=== PATIENT | female | born 1955 | race African-American/Black ===

== ENCOUNTER → 2016-06-05 | Outpatient (CLI) | payer OTHER ==
[~2016-06-05] MED LIST: DEXAMETHASONE 44 M1 PO; ENOXAPARIN60 MG/0.1 SUBQ; FENTANYL PA25 MCG/HR TRANSDERM; HYDROCODON-ACE1 EAC7 PO; KEFLEX500 MG PO; KLOR-CON 1010 MEQ PO; LASIX 40 MG TAB40 M2 PO; LIDODERM 5%1 PATC1 TRANSDERM; LORAZEPAM 0.50.5 M1 PO; PERCOCET 7.5-31 EACH PO; PHENERGAN 25 MG25 M1 PO; VENTOLIN HFA 1818 GM INH; ZOFRAN ODT4 MG PO
--- NOTE | ~2016-06-05 | CNG ---
[facility] [place] [address] CYTO-NONGYN REPORT PROCEDURE Name: ANTON BAE Room #: [facility].Jonn.#: [id number] Admission: 06/05/16 Date of : 57 Discharge: Report #: [id number] Path Case #: [id number] CYTOPATHOLOGY REPORT COLLECTION DATE: 06/05/2016 RECEIVED DATE: 06/05/2016 SUBMITTING PHYS: Dr. Amadou Chin OTHER PHYS: CLINICAL HISTORY: Paracentesis/fallopian tube carcinoma, malig ascites SPECIMEN(S) RECEIVED: A.Abdominal fluid * * * * * * * * * * * * FINAL DIAGNOSIS: Abdominal fluid: - POSITIVE FOR MALIGNANCY; MALIGNANT CELLS IDENTIFIED WITH FEATURES OF ADENOCARCINOMA (PLEASE SEE COMMENT). COMMENT: Immunohistochemical stains are performed on the cell block. Calretinin: Non-reactive within the cells of interest Gilberto-EP4: Strong membranous reactivity present P53: Nuclear reactivity present WT1: Membranous reactivity present without any nuclear reactivity (non-specific staining) D2-40: Non-reactive Desmin: Non-reactive within the cells of interest The morphologic features support the involvement of abdominal fluid by a moderately differentiated adenocarcinoma. History of prior liver biopsy ([id number]) with a diagnosis of metastatic adenocarcinoma of Mullerian origin is noted. Findings in the current case are supportive of the same. Please note that a papillary serous carcinoma of endometrial or ovarian origin, as well as primary peritoneal serous carcinoma will show a similar immunohistochemical profile. Please correlate clinically. Co-review: Dr. Michelle Pugh (IUV:mgr; d/t: 06/08/16) PATHOLOGIST: Maddi Ashley M.D. REPORT ELECTRONICALLY SIGNED BY: Maddi Ashley M.D. DATE/TIME: 06/09/2016 13:13 * * * * * * * * * * * * GROSS PATHOLOGY: A. Abdominal fluid: The specimen is submitted unfixed, labeled "Anton Bae". Received by the Cytology Department is 20 mL of [address] [address] CYTO-NONGYN REPORT PROCEDURE Name: ANTON BAE Yan Room #: [facility]#: [id number] Admission: 06/05/16 Date of : 57 Discharge: Report #: [id number] Path Case #: [id number] yellow fluid. One ThinPrep slide and a cell block were prepared. (kg 06/05/16) BOTTOM HOOP DRIVER(S): RED Ybarra(ASCP) INITIAL CPT CODE(S): A; 04786, 31577, 11223, 31210, 10037, 47898, 78692, 73911 Professional services performed by [facility] at [address] , [place] [address] [facility] performed by [facility] at [address] [place] [address]., [address], [place] [address]. [address], [address] [place] [address] PHONE: [phone] DIRECTOR: Feroz Sahni M.D. * * * END OF REPORT * * *
[2016-06-05 15:28] LABS: TOTAL VOLUME 50
[2016-06-07 03:09] LABS: BODY FLUID ALBUMIN 2.5 g/dL (()); BODY FLUID GLUCOSE 89 mg/dL (())
[2016-06-07 05:35] LABS: BODY FLUID LDH 1836 IU/L (())
[2016-06-07 23:05] LABS: BF MACROPHAGE 22 % (Not Estab.); BF NEUTROPHILS 70 % (0-24); BF NUCLEATED CELLS 646 /mm3 (0-499); BF RBC 2000 /uL (Not Estab.); CLARITY CLEAR (Clear); COLOR YELLOW (())
[2016-06-08 14:13] LABS: BF LINING CELLS 0 % (Not Estab.); BODY FLUID AMYLASE 45 U/L (())
== END ==
LOC: ULTRA 13:57
PROVIDERS: Internal Medicine Hematology & Oncology
DX: C57.00 Malignant neoplasm of unspecified fallopian tube (principal); R18.0 Malignant ascites

== ENCOUNTER 2016-06-12 12:14 | Inpatient (IN) | payer OTHER ==
[~2016-06-12] VITALS: Ht 167.6 cm; Wt 63.5 kg
[2016-06-12] VITALS (22 sets, daily range): BP systolic 79–108; BP diastolic 53–78
--- NOTE | ~2016-06-12 | H ---
[facility] [place] [address] HISTORY AND PHYSICAL Name: ANTON BAE Room #: 241-P ADM IN M.R.#: [id number] Admission: 06/12/16 Attend Phys: Kristen Solis MD Discharge: Date of : 57 Report #: [id number] THIS REPORT FOR: //name// CC: [facility] physician/PCP Kristen Solis DATE OF SERVICE: 06/12/2016 TYPE OF DICTATION: Admission H and P after [id number] encounter. CHIEF COMPLAINT: Fever and weakness, status post chemotherapy. HISTORY OF PRESENT ILLNESS: A 60 years old female with a diagnosis of fallopian tube cancer metastasized and ascites with extensive diffuse metastasis including brain, multiple pulmonary nodules in liver, peritoneal metastasis with significant ascites, and she had recently undergone paracentesis. Her course of malignancy was complicated by pulmonary embolism and DVT 1 month ago and inferior vena cava filter was placed at that time and she has been on enoxaparin injection. The patient received second cycle of chemotherapy for her cancer on , but today she felt very weak, feverish, and she was brought to Emergency Room and she was hypotensive. In the Emergency Room, they gave her some IV fluids, which made her blood pressure in a reasonable level. The patient is complaining currently of some cough, but clear sputum and denies any other symptoms. She has generalized fatigue. She is alert, oriented. The patient is without any short of breath or chest pain. She denies any abdominal pain, dysuria, hematuria, nausea, vomiting, or change in her bowel habit. REVIEW OF SYSTEMS: Except that mentioned in the HPI, all other systems are negative. PAST MEDICAL HISTORY: Include: 1. Metastatic fallopian tube cancer. 2. History of para 3, 3. MEDICATIONS: See admission reconciliation sheet. ALLERGIES: No known drug allergies. SOCIAL HISTORY: The patient is living with her son. No alcohol or tobacco. She is not employed. No illicit drugs. FAMILY HISTORY: Noncontributory. PHYSICAL EXAMINATION: GENERAL: She is alert, oriented. VITAL SIGNS: Temperature is 99.1, pulse 130, blood pressure 96/57, respirations [facility] [address] [place] [address] HISTORY AND PHYSICAL Name: ANTON BAE Room #: 241-P [facility] IN [facility]#: [id number] Admission: 06/12/16 Attend Phys: Kristen Solis MD Discharge: Date of : 57 Report #: [id number] 18. HEENT: PERRLA. Intact extraocular muscles. No icterus. NECK: Supple. No JVD. No bruit. No thyroid. CHEST: Good air entry, but diminished on the bases. CARDIOVASCULAR: Regular rate and rhythm. No murmur, rub or gallop. Tachycardic. ABDOMEN: Distended, shifting dullness. No organomegaly appreciated. EXTREMITIES: +2 pitting edema. SKIN: Intact. No rash or ulcers. NEUROLOGIC: Cranial nerves 2-12 are intact. No focal neurological signs. PSYCHIATRIC: Normal affect, judgment. DATA: Chest x-ray, multiple pulmonary nodules. White count is 0.4, hemoglobin 9.5, hematocrit 30, platelets 84. Sodium 131, potassium 3.6, chloride 96, bicarb 21, BUN 35, creatinine 0.8, glucose 105, alkaline phosphatase 268. INR 1.1. Total protein 6.2, albumin 2. UA is negative. Amylase 56, lipase 99. Her ABGs did show pH of 7.45, pCO2 30.8, and pO2 74.2, lactate 1.78. ASSESSMENT AND PLAN: 1. Severe sepsis. The patient is going to be admitted to the ICU. The patient is going to be supported by IV fluids. We are going to start her on broad-spectrum antibiotics. The etiology of the infection is not clear yet, but it most probably can be secondary to peritonitis, so the patient will be on IV fluids, broad-spectrum antibiotics and supportive care. Pulmonary and ID are on the case. Her lactate is mildly elevated. 2. Neutropenic fever. This is going to be on precaution and we are going to follow her white count closely. Of note is she has received her first doses of antibiotic in the ER. 3. Metastatic fallopian tube cancer. The patient is status post chemotherapy. She is going to be followed by the hematology/oncology service. 4. for now, maybe we are going to consult GI if she needs more paracentesis or it can be managed by her heme/onc doctor. 5. Anemia and thrombocytopenia secondary to the cancer situation. Cultures were obtained for the patient. The patient on sepsis protocol and we are going to follow her very closely. <ELECTRONICALLY SIGNED> By: Kristen Solis MD 06/13/16 0929 0534 0645 Kristen Solis MD /nt
--- NOTE | ~2016-06-12 | HC ---
[facility] [place] [address] CONSULTATION Name: ANTON BAE Room #: 241-P [facility] IN ..#: [id number] Admission: 06/12/16 Attend Phys: Kristen Solis MD Discharge: Date of : 57 Report #: [id number] THIS REPORT FOR: //name// CC: [facility] physician/PCP Kristen Solis HISTORY OF PRESENT ILLNESS: The patient is an unfortunate 60-year-old -[place] female who I have been asked to see for further evaluation of her tense malignant ascites. She was recently diagnosed approximately a month or so ago with metastatic adenocarcinoma most consistent with a fallopian tube. Unfortunately, there is evidence of metastasis to her lung, liver and brain. She has also had recent pulmonary emboli. I was asked to evaluate her for considerations regarding paracentesis. Her medical history is otherwise notable for that mentioned above. She has had an IVC filter placed and has been on chemotherapy for her metastatic fallopian ovarian type cancer, metastatic as above. MEDICATIONS: Include fluconazole, vancomycin and piperacillin. SOCIAL HISTORY: She denies alcohol or tobacco consumption. FAMILY HISTORY: Negative for inflammatory bowel disease or colon cancer. REVIEW OF SYSTEMS: Besides that mentioned above, positive for weight loss, weakness and fatigue. She denies head, eyes, ears, nose or throat complaints. Denies chest pain, chest palpitation, chest pressure, cough, shortness of breath, wheezing, genitourinary, musculoskeletal or neuropsychiatric complaints otherwise. PHYSICAL EXAMINATION: VITAL SIGNS: Afebrile. Vital signs stable. HEENT: Nonicteric. NECK: No JVD, thyromegaly or bruits. CARDIOVASCULAR: Not performed. PULMONARY: Not performed. ABDOMEN: Reveals a tensely distended abdomen without peritoneal signs. EXTREMITIES: Deferred. NEUROLOGIC: Deferred. RECTAL: Deferred. LABORATORY DATA: Pertinent labs include recent ascites with evidence of malignant cells. Serum chemistry notable for venous bicarbonate 19, BUN 15 and creatinine 0.5. Liver tests normal. Lipase normal. Albumin 1.7, total protein 5.6, alkaline phosphatase 169. Lactate 2.2%. Percent transferrin saturation 5. INR 1.2, hemoglobin 10.7, platelet count 62 and her white count is 0.7. [place] [address]. Most recent x-ray reveals ____ in the hospital last admission, although an acute abdominal series reveals innumerable pulmonary [address] [address] CONSULTATION Name: ANTON BAE Room #: 241-P [facility] IN [facility]#: [id number] Admission: 06/12/16 Attend Phys: Kristen Solis MD Discharge: Date of : 57 Report #: [id number] metastasis and no evidence of acute pneumonia or pneumothorax. ASSESSMENT AND PLAN: In summary, the patient has malignant ascites for which a palliative more scheduled approach should be entertained. When she is hospitalized as she was recently, the number of intravenous fluids required for her dehydration have translocated fluid into her abdomen increasing her ascites and decreasing her interval. A more extended approach to scheduled paracentesis would be reasonable once she is more on an outpatient regimen. It has been approximately a little shy of 2 weeks since her last paracentesis. I would schedule her for a large volume paracentesis tomorrow. Thanks for allowing me to participate in the care of this nice woman. <ELECTRONICALLY SIGNED> By: Edil Wood MD 06/15/16 1539 1318 1614 Santos Blunt MD /nt
--- NOTE | ~2016-06-12 | 2DMMODE ---
[facility] [place] [employer] [place] [address] 2 D/M-MODE ECHOCARDIOGRAM Name: KATHIAANTON E Room #: 241-P [facility]#: [id number] Admission: 06/12/16 Attend Phys: Kristen Solis, Discharge: Date of : 57 Date of Service: 06/15/16 0849 Report #: [id number] THIS REPORT FOR: //name// Transthoracic Echocardiography Ordering physician: Yuriy Escamilla Referring physician: Yuriy Escamilla Geoscience Specialist: MIRLANDE Pyle Indications/History: Bacteremia, Sepsis. BP: 108 / HR: 110bpm Height: 65in Weight: 139.7lb 79 Study data: M-mode, complete 2D, complete spectral Doppler, and color Doppler. Location: Bedside. Routine. Image quality was good. 2D measurements Normal Normal LVID ED 33mm 36-57 IVS ED 9.6mm 6-11 LVID ES 24.3mm 23-40 LVPW ED 8.3mm 6-11 LA volume index 20ml/m2 16-28 AoRoot diam ED 32mm 21-37 LVOT diameter 19mm 18-23 Findings: Left ventricle: The cavity size was normal. Wall thickness was normal. Systolic function was normal. The estimated ejection fraction was in the range of 55% to 60%. Wall motion was normal. Right ventricle: The cavity size was normal. Systolic function was normal. Right atrium: The atrium was normal in size. Left atrium: The atrium was normal in size. Volume index: 20ml/m2 (S). Aortic valve: Trileaflet; mildly calcified leaflets. Doppler: There was no stenosis. No regurgitation. Peak velocity: 152.5cm/s (S). Mitral valve: Mildly calcified annulus. Doppler: There was no evidence for stenosis. Trivial regurgitation. [facility] [address] [place] [address] 2 D/M-MODE ECHOCARDIOGRAM Name: ANTON BAE #: 241-P [facility] IN M.R.#: [id number] Admission: 06/12/16 Attend Phys: Kristen Solis, Discharge: Date of : 57 Date of Service: 06/15/16 0849 Report #: [id number] Peak E-wave velocity: 48.6cm/s. Peak A-wave velocity: 88cm/s. Tricuspid valve: Structurally normal valve. Doppler: There was no evidence for stenosis. Mild regurgitation. Regurgitant peak velocity: 282.9cm/s. Peak RV-RA gradient: 32mm Hg (S). Pulmonic valve: Structurally normal valve. Doppler: There was no evidence for stenosis. No regurgitation. Pericardium: There was no pericardial effusion. Aorta: Aortic root: The aortic root was normal in size. Pulmonary artery: Systolic pressure was estimated to be 35mm Hg. Diastolic function: Doppler parameters are consistent with abnormal left ventricular relaxation (grade 1 diastolic dysfunction). Systemic veins: Inferior vena cava: The vessel was normal in size; the respirophasic diameter changes were in the normal range (= 50%). Conclusions 1. Left ventricle: Systolic function was normal. The estimated ejection fraction was in the range of 55% to 60%. Wall motion was normal. Doppler parameters are consistent with abnormal left ventricular relaxation (grade 1 diastolic dysfunction). 2. Aortic valve: Trileaflet; mildly calcified leaflets. There was no stenosis. No regurgitation. 3. Mitral valve: Mildly calcified annulus. Trivial regurgitation. 4. Pericardium, extracardiac: There was no pericardial effusion. 5. Pulmonary arteries: Systolic pressure was estimated to be 35mm Hg. <ELECTRONICALLY SIGNED> By: Cas Patterson MD, [facility] 06/15/1646 0849 5 Cas Patterson MD, [facility] /richard
--- NOTE | ~2016-06-12 | HC ---
[facility] [place] [address] CONSULTATION Name: ANTON BAE Room #: 241-P [facility] IN M.R.#: [id number] Admission: 06/12/16 Attend Phys: Kristen Solis MD Discharge: Date of : 57 Report #: [id number] THIS REPORT FOR: //name// CC: [facility] physician/PCP Kristen Chin MD DATE OF SERVICE: 06/12/2016 REFERRING PROVIDER: Viktoriya. REASON FOR CONSULTATION: Sepsis. CHIEF COMPLAINT: Weakness and fever. HISTORY OF PRESENT ILLNESS: Our group was asked to see the patient in consultation while hospitalized at [facility], seen in the emergency room 12 at the request of Dr. Sadler and Dr. Sai Phelps. A pleasant 60-year-old woman who unfortunately had history of recently diagnosed mullerian cancer with extensive diffuse metastasis including brain, multiple pulmonary nodules, liver and peritoneal metastasis with difficulty with significant ascites had recently undergone a paracentesis. Her recent course is complicated by 1 month ago diagnosis of significant pulmonary embolism and DVT, has an IVC filter, has been on enoxaparin injections for therapy. Has had some persistent lower extremity edema as a consequence. She has received a second cycle of treatment for her cancer yesterday, however, today felt extremely weak. Family noted a temperature of 102, was brought to the emergency department, was hypotensive, received some IV fluids. A right IJ central line has been placed for management assistance. Currently has had some cough with clear sputum. Denies any other symptoms. Has some general malaise. She is alert and oriented, but seem somewhat delayed in mentation. Denies any chest pain, significant abdominal pain, dysuria or hematuria. No nausea, vomiting, or change in bowel habits. States that she is otherwise without any other complaints other than the generalized weakness. ALLERGIES: None known. PAST MEDICAL HISTORY: 1. History of metastatic mullerian cancer as described in HPI. 2. History of prior times 3. OUTPATIENT MEDICATIONS: 1. Enoxaparin 60 mg subcutaneous twice daily. 2. Dexamethasone 4 mg twice daily. 3. Albuterol p.r.n. [facility] [address] [place] [address] CONSULTATION Name: ANTON BAE Room #: 241-P [facility].#: [id number] Admission: 06/12/16 Attend Phys: Kristen Solis MD Discharge: Date of : 57 Report #: [id number] 4. Hydrocodone p.r.n. 5. Lidocaine patches. 6. Lorazepam p.r.n. 7. Ondansetron p.r.n. 8. Promethazine p.r.n. 9. Outpatient cancer treatment of unclear agents. SOCIAL HISTORY: The patient is currently , lives with son Shawn. No alcohol or tobacco use. Has been a homemaker. No outside employment. No animals in her home. FAMILY HISTORY: Negative for any significant pulmonary disease. REVIEW OF SYSTEMS: As described in HPI. Also had a fever, generalized weakness and cancer related symptoms. Has been asymptomatic. PHYSICAL EXAMINATION: VITAL SIGNS: Temperature 99.1, pulse 130s and regular, respiratory rate 20s, blood pressure 96/57, oxygen saturation 97% on room air. GENERAL: This is a thin, middle-aged woman in moderate respiratory distress. ENT: Clear oropharynx. No thrush. No erythema. NECK: Supple, no lymphadenopathy. LUNGS: Diminished, no wheezes or crackles. CARDIOVASCULAR: Heart was tachycardic, but regular. No murmurs noted. ABDOMEN: Extensively distended with fluid wave noted. Hepatomegaly appreciated with nodular appearing liver. EXTREMITIES: Revealed 2+ pitting edema with a rapid recovery time. INTEGUMENT: I did not identify any rash. LABORATORY DATA: Chest x-ray reveals central line in right atrium, multiple pulmonary nodules are noted, no acute change when compared to previous films. White blood cell count 0.4, hemoglobin 9.5, hematocrit 30, platelet count 84. Sodium 131, potassium 3.6, chloride 96, bicarbonate 21, BUN 35, creatinine 0.8, glucose 105, alkaline phosphatase 268. INR 1.1. There is no arterial blood gas. No lactate noted. IMPRESSION: 1. Neutropenic fever with findings suggestive of severe sepsis as evidenced by hypotension and likely infectious cause. Lactate mildly elevated. 2. Neutropenia. 3. Metastatic mullerian cancer. 4. Ascites. 5. Anemia and thrombocytopenia. SUGGESTIONS: Source of infection is not clear. 1. Infectious disease consultation. [address] [address] CONSULTATION Name: BAEANTON E Room #: 241-P [facility] IN ..#: [id number] Admission: 06/12/16 Attend Phys: Kristen Solis MD Discharge: Date of : 57 Report #: [id number] 2. Broad-spectrum antimicrobials. 3. Nasal swab for influenza screen. 4. Blood, urine, sputum cultures. 5. Follow up chest radiograph. 6. ICU care. 7. Initiate sepsis protocol, but meets early goal directed therapy. We will discontinue therapy early. 8. Additional recommendations to follow. Discussed with son and nursing as well as Dr. Solis at bedside. Total critical care time 40 minutes, not including any procedures to this point. <ELECTRONICALLY SIGNED> By: Yuriy Escamilla MD 06/15/16 0904 1525 2154 Yuriy Escamilla MD /nt
--- NOTE | ~2016-06-12 | HC ---
[facility] [place] [address] CONSULTATION Name: ANTON BAE Room #: 241-P [facility] IN M.R.#: [id number] Admission: 06/12/16 Attend Phys: Kristen Solis MD Discharge: Date of : 57 Report #: [id number] THIS REPORT FOR: //name// CC: [facility] physician/PCP Kristen Solis REASON FOR CONSULTATION: I was asked to evaluate concerning severe sepsis. HISTORY OF PRESENT ILLNESS: The patient was a 60-year-old recently diagnosed with metastatic fallopian tube cancer with disease throughout the abdomen and pelvis including liver, lung and brain, presented on 05/11/2016 where the initial diagnosis was made. She has not been doing well for at least the last 4-5 months, with progressive weight loss, abdominal distention. She was found to also have bilateral PEs. IVC filter was placed and she was started on her first round of chemotherapy, which included Taxol and carboplatin. Her CA-125 was greater than 14,000. She tolerated her first treatment course and had a repeat dose this week. This morning she developed fever, chills and generalized weakness. Temperature was up to 103 degrees. She presented to the Emergency Room, hypotensive and tachycardic. It is noted that she had had a paracentesis done on the which showed adenocarcinoma on cytology. Cultures were negative. They took about 4 liters off. She has reaccumulated. She reports no headache. She has had a mild sore throat, no cough or sputum production. No pleuritic chest pain. No nausea, vomiting. She has had loose stools. No dysuria or frequency. ALLERGIES: None. MEDICATIONS: As noted on her MAR, which were reviewed. She was given a dose of vancomycin and Zosyn in the Emergency Room. PAST MEDICAL HISTORY: , IVC filter and the above noted points. FAMILY HISTORY: Noncontributory. SOCIAL HISTORY: She is a nonsmoker, no significant alcohol intake. PHYSICAL EXAMINATION: VITAL SIGNS: Temperature was 99 degrees, heart rate 130, blood pressure 86/56, respiratory rate 22. GENERAL: She was alert and conversant. Cachectic. Had abdominal distention and lower extremity edema. No rashes or decubiti. HEENT: No thrush. She has a right IJ catheter in place. LUNGS: Clear. HEART: Tachycardic and regular. ABDOMEN: Had ascites, was mildly tender, but did not have any guarding or rebound. NEUROLOGIC: Unremarkable. [facility] [address] [place] [address] CONSULTATION Name: ANTON BAE Room #: 241-P [facility] IN [facility]#: [id number] Admission: 06/12/16 Attend Phys: Kristen Solis MD Discharge: Date of : 57 Report #: [id number] LABORATORY STUDIES: Chest x-ray shows bilateral pulmonary nodule, hemoglobin 9.5, white count 0.4 with 43% neutrophils, platelet count 84,000. Urinalysis unremarkable. Lactate was 2.7. Blood and urine cultures are pending. Sodium 131, potassium 3.6, bicarbonate 21, creatinine 0.8, alkaline phosphatase 268. Liver function tests otherwise normal. IMPRESSION: A 60-year-old with widely metastatic adenocarcinoma, fallopian tube origin, now with neutropenic fever and sepsis. Etiology at this point has not been determined. With her onset of diarrhea, suspect she may mucositis, enteritis and translocation of bacteria. We will recommend broad antibiotic coverage. Add antifungal for her thrush. She has been given Neulasta wither last chemotherapy per their report. <ELECTRONICALLY SIGNED> By: Sai Phelps MD 06/15/16 1010 1612 2238 Sai Phelps MD /nt
--- NOTE | ~2016-06-12 | CNG ---
[facility] [place] [address] CYTO-NONGYN REPORT PROCEDURE Name: KATHIAANTON E Room #: 241-P ADM IN M.R.#: [id number] Admission: 06/12/16 Date of : 57 Discharge: Report #: [id number] Path Case #: [id number] CYTOPATHOLOGY REPORT COLLECTION DATE: 06/15/2016 RECEIVED DATE: 06/15/2016 SUBMITTING PHYS: Dr. Santos Blunt OTHER PHYS: Dr. Kristen Solis CLINICAL HISTORY: Ovarian cx, Mets liver, Lung, Brain. SPECIMEN(S) RECEIVED: A.Abdominal fluid * * * * * * * * * * * * FINAL DIAGNOSIS: A. Abdominal fluid: - MALIGNANT CELLS IDENTIFIED WITH CELLULAR FEATURES OF ADENOCARCINOMA. Dr. Ashley has also reviewed this case and she agrees with the diagnosis. Patient's history of a metastatic adenocarcinoma likely of Mullerian origin is noted. PATHOLOGIST: Lucius Ram M.D. REPORT ELECTRONICALLY SIGNED BY: Lucius Ram M.D. DATE/TIME: 06/16/2016 13:50 * * * * * * * * * * * * GROSS PATHOLOGY: A. Abdominal fluid: The specimen is submitted unfixed, labeled "Anton Bae". Received by the Cytology Department is 15 mL of yellow fluid. One ThinPrep slide and a cell block were prepared. (clt 06.15.2016) COMPETENCY EVALUATED NURSE AIDE(S): Chandni G. Villatoro, CT(ASCP) INITIAL CPT CODE(S): A; 46889, 71129 Professional services performed by [facility] at [facility] [address], [place] [address] Technical services performed by [facility] at [address] [place] [address], [address], [place] [address]. [facility] [address] [place] [address] CYTO-NONGYN REPORT PROCEDURE Name: ANTON BAE Room #: 241-P ADM IN M.R.#: [id number] Admission: 06/12/16 Date of : 57 Discharge: Report #: [id number] Path Case #: [id number], [address] [place] [address] PHONE: [phone] DIRECTOR: Feroz Sahni M.D. * * * END OF REPORT * * *
--- NOTE | ~2016-06-12 | HC ---
[facility] [place] [address] CONSULTATION Name: ANTON BAE Room #: 241-P [facility] IN M.R.#: [id number] Admission: 06/12/16 Attend Phys: Kristen Solis MD Discharge: Date of : 57 Report #: [id number] THIS REPORT FOR: //name// CC: SAL ALAS physician/PCP Kristen Escamilla MD REASON FOR CONSULTATION: Metastatic fallopian/ovarian type cancer. 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 Unfortunately, cancer was metastatic to lung, liver and cerebellum at that time. She was also found to have pulmonary emboli without DVT and had an IVC filter placed. The patient began a carboplatin and Taxol chemotherapy approximately 3 weeks and 2 days ago, received her second cycle yesterday. Her blood counts yesterday were a white count I believe in the 8 range. Her hemoglobin was 9.6 range and her platelets were over 100,000. The patient would have come to the office today for her Neulasta growth factor shot. The patient's son called the office today, said the patient was running a fever and felt ill, ____ come to the emergency room. Here, her white count was found to be 0.4 and her blood pressure was a little bit lower, her lactic acid was elevated. We are concerned that she was developing sepsis since she was admitted. At this time, the patient is in ICU; I had a chance to talk with both her son, Shawn, as well as the patient. At the time of visiting the patient in the ICU, she denies any really pain. She feels cold and chilled at this time. She does not feel like she has a headache. She does feel like she has a bit of a sore throat, sore mouth. She was noted to have thrush. She also felt like she is moving air okay. She has some abdominal pressure, but not really any pain. Did have a little bit nausea earlier, but not now. She has not had any new diarrhea or constipation or dysesthesias. She did talk "I had a little bit loose stool one time early today, no bleeding difficulties." Does have some ankle swelling the same that she has had about mid leung. PAST MEDICAL HISTORY: Notable for the recent finding of the metastatic fallopian/ovarian type cancer with multiple mets. Note that the brain has not been radiated as we thought that she was asymptomatic and that her systemic therapy needed to be initiated sooner. On exam recently, we thought her abdomen was slightly smaller. She also has the PE on Lovenox. No bleeding. Could consider lovenox if clinically she is improving and the risk of clotting is higher than that of bleeding ; note that she does have an IVC filter in place. Note that she also was found to be iron deficient last time and received iron sucrose with an improvement in her hemoglobin up to over 9.5. Had not had a GI evaluation yet. [address] [address] CONSULTATION Name: ANTON BAE Room #: 241-P ADM IN M.R.#: [id number] Admission: 06/12/16 Attend Phys: Kristen Solis MD Discharge: Date of : 57 Report #: [id number] MEDICATIONS: At this time, in the hospital, currently include the filgrastim which I just ordered, fluconazole daily, vancomycin q. 12 hours, piperacillin q. 6 hours, insulin on a sliding scale, pressors if needed, Tylenol as needed. SOCIAL HISTORY: Nonsmoker. No alcohol. No street drugs. I do not think she has worked outside the home. She ____ children. FAMILY HISTORY: Does not know much about her father, mother at childbirth, had 3 brothers. She has 3 children. No one else with cancer that she is aware of. Note that she has not had genetic testing yet. PHYSICAL EXAMINATION: VITAL SIGNS: Height today is 5 feet 6 inches, 167.6 cm, 140 pounds or 63.5 kg, blood pressure is currently 102/64, O2 sat 95%, respirations 24, pulse 141, temperature was 99.1 earlier. HEENT: Oropharynx has thrush. LUNGS: Symmetric unlabored air movement. HEART: Tachy. No definite murmur. LYMPHATICS: No enlarged lymph nodes in the supraclavicular, cervical, axillary or inguinal region. ABDOMEN: Protuberant related to ascites ____. The mass of her abdomen seems somewhat smaller, though it is hard to tell with the fluid. EXTREMITIES: Without clubbing or cyanosis. Does have some edema up to about two-thirds up the leung. LABORATORY DATA: Shows a BUN of 32, creatinine of 0.7; note that at last admit, her BUN had been 18. Bilirubin range is normal; alkaline phosphatase 215, down from 648 when she left; ALT 41; total protein 5.2, had been 5.9 when she left; albumin 1.7, had been 2/3 when she left; lactic acid had been 2.7, is down to 2.2. Iron panel last time ____ the patient received iron. Coags showed normal protime and APTT. White count is currently 0.3, hemoglobin 8.1, platelets are 71; note that when she left the hospital last time, they were 396. Differential has an ANC of 0.2. Note that her CA-125 last admission had been 14,037. Note that influenza panel tests are pending. UA did not reveal nitrite or leukocytes. ASSESSMENT AND PLAN: 1. Metastatic fallopian/mullerian/ovarian type cancer status post cycle 2. We will begin patient on filgrastim today. 2. Sepsis. Agree with cultures and broad spectrum antibiotics. 3. Thrush, Diflucan. 4. Central nervous system metastases. I am holding off on radiation therapy at this time as she has been essentially asymptomatic. 5. Malignant ascites. Paracentesis as needed. 6. Pulmonary emboli. Has an IVC filter. Could hold off on Lovenox until we see what direction her sepsis goes. Currently, her platelets are slightly [facility] [address] [place] [address] CONSULTATION Name: ANTON BAE Room #: 241-P [facility] IN ..#: [id number] Admission: 06/12/16 Attend Phys: Kristen Solis MD Discharge: Date of : 57 Report #: [id number] lower. 7. Anemia. Will probably drop with hydration. 8. Protein calorie malnutrition, very concerned and albumin was 2 prior to this recent issue. 9. Code status. I talked to the patient who is deferring to her son, Shawn. I expressed my concern about her ability to tolerate or be able to recover from a systemic illness, especially if she would suffer vascular collapse and need intubation or need chest compressions. I would suggest that they not proceed that way. At this point, he wishes to until we see what direction things proceed. We will defer. <ELECTRONICALLY SIGNED> By: Amadou Chin MD 06/16/16 [id number] Amadou Chin MD /nt
[~2016-06-12 12:14] MED LIST changes: -FENTANYL PA25 MCG/HR TRANSDERM; -KEFLEX500 MG PO; -PERCOCET 7.5-31 EACH PO
[2016-06-12 13:03] LABS: CALCIUM 7.8 mg/dL (8.5-10.1); CREATININE 0.8 mg/dL (0.6-1.3); HEMATOCRIT 29.9 % (37.0-47.0); HEMOGLOBIN 9.5 gm/dL (12.0-15.0); MCH 24.8 pg (26.0-34.0); MCHC 31.8 % (28.0-37.0); PLATELET COUNT 84 thou/uL (150-400); POTASSIUM 3.6 mmol/L (3.5-5.1); RBC 3.83 mil/uL (4.20-5.00); RDW 35.3 % (10.5-14.5)
[2016-06-12 13:07] LABS: MANUAL DIFF YES; WBC 0.4 thou/uL (4.0-11.0)
[2016-06-12 13:09] LABS: DIRECT BILIRUBIN 0.1 mg/dL (<0.1-0.3); TOTAL BILIRUBIN 0.5 mg/dL (<0.1-1.0); TOTAL PROTEIN 6.2 g/dL (6.4-8.2)
[2016-06-12 13:49] LABS: INR 1.1; PROTIME 11.4 Seconds (9.3-11.4)
[2016-06-12 14:21] LABS: URINE BILIRUBIN NEGATIVE (Negative); URINE BLOOD NEGATIVE (Negative); URINE COLOR YELLOW; URINE GLUCOSE-RANDOM* NEGATIVE (Negative); URINE KETONES NEGATIVE (Negative); URINE LEUKOCYTES-REFLEX NEGATIVE (Negative); URINE PROTEIN (DIPSTICK) TRACE (Negative); URINE UROBILINOGEN 0.2 E.U./dl (0.2-1.0)
[2016-06-12 14:32] LABS: ABSOLUTE NEUTROPHILS 0.2 thou/uL (1.4-8.2); ANISOCYTOSIS 2+; ATYPICAL LYMPHS 1 %; TOTAL CELL COUNT 100
[2016-06-12 14:33] LABS: LARGE PLATELETS RARE
[2016-06-12 17:14] LABS: RBC 3.25 mil/uL (4.20-5.00)
[2016-06-12 17:16] LABS: HEMATOCRIT 25.7 % (37.0-47.0); HEMOGLOBIN 8.1 gm/dL (12.0-15.0); MCH 25.1 pg (26.0-34.0); MCHC 31.7 % (28.0-37.0); MCV 79.1 fL (80.0-100.0); PLATELET COUNT 71 thou/uL (150-400); RDW 34.9 % (10.5-14.5)
[2016-06-12 17:20] LABS: MANUAL DIFF YES; WBC 0.3 thou/uL (4.0-11.0)
[2016-06-12 17:36] LABS: CREATININE 0.7 mg/dL (0.6-1.3); POTASSIUM 3.5 mmol/L (3.5-5.1)
[2016-06-12 17:44] LABS: ALBUMIN 1.7 g/dL (3.4-5.0); TOTAL BILIRUBIN 0.5 mg/dL (<0.1-1.0); TOTAL PROTEIN 5.2 g/dL (6.4-8.2)
[2016-06-12 18:43] LABS: ABSOLUTE NEUTROPHILS 0.2 thou/uL (1.4-8.2); NUCLEATED RBCS 1 /100WBC; TOTAL CELL COUNT 100
[2016-06-12 18:44] LABS: ANISOCYTOSIS 3+
[2016-06-12 18:45] LABS: LARGE PLATELETS FEW
[2016-06-12 21:08] LABS: ABG SAMPLE TYPE VENOUS; BE(vivo) -2.4 mmol/L (-2 to +3); HCO3 21.1 mmol/L (22.0-26.0); LACTATE 1.78 mmol/L (0.5-2.0); O2Hb VENOUS 67.4 (65.0-85.0); PCO2 VENOUS 30.8 mmHg (41.0-51.0); PO2 VENOUS 36.9 mmHg (35.0-45.0); sO2 VENOUS 74.2 % (65.0-85.0)
[2016-06-12 21:09] LABS: STICK SITE LINE
[2016-06-12 21:22] LABS: ABG SAMPLE TYPE ARTERIAL; BE(vivo) -2.3 mmol/L (-2 to +3); HCO3 20.5 mmol/L (22.0-26.0); LACTATE 1.92 mmol/L (0.5-2.0); O2(CT) 12.7 mL/dL (15.0-23.0); O2Hb 92.8 % (92.0-98.0); PCO2 28.3 mmHg (35.0-45.0); PO2 69.1 mmHg (80.0-100.0); STICK SITE R.BRACHIAL; pH 7.478 (7.360-7.450); sO2 95.2 % (92.0-98.0); tCO2 21.4 mmol/L (24.0-30.0)
[2016-06-12 21:34] LABS: CALCIUM 6.6 mg/dL (8.5-10.1); CREATININE 0.6 mg/dL (0.6-1.3)
[2016-06-12 21:50] LABS: APTT 37.4 Seconds (24.5-32.8); INR 1.1; PROTIME 11.7 Seconds (9.3-11.4)
[2016-06-13] VITALS (67 sets, daily range): BP systolic 85–112; BP diastolic 58–82
[2016-06-13 04:18] LABS: ABG SAMPLE TYPE VENOUS; BE(vivo) -4.3 mmol/L (-2 to +3); HCO3 20.1 mmol/L (22.0-26.0); O2(CT) 11.5 mL/dL (15.0-23.0); O2Hb VENOUS 76.4 (65.0-85.0); PCO2 VENOUS 34.5 mmHg (41.0-51.0); PO2 VENOUS 43.1 mmHg (35.0-45.0); sO2 VENOUS 78.7 % (65.0-85.0); tCO2 21.1 mmol/L (24.0-30.0)
[2016-06-13 04:19] LABS: STICK SITE LINE
[2016-06-13 04:36] LABS: HEMOGLOBIN 9.7 gm/dL (12.0-15.0); MCV 81.7 fL (80.0-100.0)
[2016-06-13 04:38] LABS: HEMATOCRIT 30.7 % (37.0-47.0); MCH 25.9 pg (26.0-34.0); MCHC 31.7 % (28.0-37.0); PLATELET COUNT 62 thou/uL (150-400); RBC 3.75 mil/uL (4.20-5.00); RDW 29.9 % (10.5-14.5)
[2016-06-13 04:46] LABS: INR 1.2
[2016-06-13 04:51] LABS: FIBRINOGEN 491.7 mg/dL (210-360); MANUAL DIFF YES
[2016-06-13 04:53] LABS: CALCIUM 6.8 mg/dL (8.5-10.1); CREATININE 0.6 mg/dL (0.6-1.3); MAGNESIUM 1.8 mg/dL (1.8-2.4); POTASSIUM 3.3 mmol/L (3.5-5.1); WBC 0.5 thou/uL (4.0-11.0)
[2016-06-13 06:26] LABS: ABSOLUTE NEUTROPHILS 0.3 thou/uL (1.4-8.2); ATYPICAL LYMPHS 1 %; METAMYELOCYTES 1 %; TOTAL CELL COUNT 100
[2016-06-13 06:28] LABS: ANISOCYTOSIS 2+; MACROCYTES 2+; MICROCYTES 1+; OVALOCYTES 1+
[2016-06-13 06:29] LABS: PLATELET ESTIMATE DECREASED; POIKILOCYTOSIS 1+; SCHISTOCYTES 1+
[2016-06-13 07:11] LABS: HIV ANTIBODY Non Reactive (Non Reactive)
[2016-06-13 12:47] LABS: POTASSIUM 4.1 mmol/L (3.5-5.1)
[2016-06-14] VITALS (23 sets, daily range): BP systolic 99–120; BP diastolic 75–97
[2016-06-14 04:39] LABS: HEMOGLOBIN 10.7 gm/dL (12.0-15.0)
[2016-06-14 04:41] LABS: HEMATOCRIT 33.9 % (37.0-47.0); MCHC 31.6 % (28.0-37.0); MCV 82.4 fL (80.0-100.0); RBC 4.12 mil/uL (4.20-5.00)
[2016-06-14 04:50] LABS: WBC 0.7 thou/uL (4.0-11.0)
[2016-06-14 04:51] LABS: MANUAL DIFF YES
[2016-06-14 04:55] LABS: ALBUMIN 1.7 g/dL (3.4-5.0); CALCIUM 7.3 mg/dL (8.5-10.1); CREATININE 0.5 mg/dL (0.6-1.3); MAGNESIUM 1.9 mg/dL (1.8-2.4); POTASSIUM 3.6 mmol/L (3.5-5.1); TOTAL BILIRUBIN 0.4 mg/dL (<0.1-1.0); TOTAL PROTEIN 5.6 g/dL (6.4-8.2)
[2016-06-14 08:54] LABS: ABSOLUTE NEUTROPHILS 0.1 thou/uL (1.4-8.2); PLATELET COUNT 62 thou/uL (150-400)
[2016-06-14 08:55] LABS: ANISOCYTOSIS 2+; MICROCYTES 1+; POIKILOCYTOSIS 1+
[2016-06-15] VITALS (18 sets, daily range): BP systolic 97–125; BP diastolic 67–93
[2016-06-15 09:22] LABS: HEMOGLOBIN 9.9 gm/dL (12.0-15.0)
[2016-06-15 09:24] LABS: HEMATOCRIT 30.8 % (37.0-47.0); MCH 26.1 pg (26.0-34.0); MCV 81.6 fL (80.0-100.0); PLATELET COUNT 53 thou/uL (150-400); RBC 3.77 mil/uL (4.20-5.00); RDW 30.7 % (10.5-14.5)
[2016-06-15 09:39] LABS: MANUAL DIFF YES; PROTIME 10.5 Seconds (9.3-11.4)
[2016-06-15 09:40] LABS: WBC 0.2 thou/uL (4.0-11.0)
[2016-06-15 09:43] LABS: CREATININE 0.5 mg/dL (0.6-1.3); POTASSIUM 3.2 mmol/L (3.5-5.1)
[2016-06-15 10:04] LABS: TOTAL CELL COUNT 50
[2016-06-15 10:05] LABS: ANISOCYTOSIS 3+; MACROCYTES 2+; MICROCYTES 1+
[2016-06-15 14:16] LABS: TOTAL VOLUME 45
[2016-06-16] VITALS (16 sets, daily range): BP systolic 97–127; BP diastolic 67–83
[2016-06-16 04:28] LABS: MCH 26.2 pg (26.0-34.0); MCV 81.7 fL (80.0-100.0); PLATELET COUNT 40 thou/uL (150-400)
[2016-06-16 04:29] LABS: HEMATOCRIT 27.2 % (37.0-47.0); HEMOGLOBIN 8.7 gm/dL (12.0-15.0); MCHC 32.1 % (28.0-37.0); RBC 3.33 mil/uL (4.20-5.00); RDW 30.3 % (10.5-14.5)
[2016-06-16 04:46] LABS: CALCIUM 7.7 mg/dL (8.5-10.1); CREATININE 0.5 mg/dL (0.6-1.3)
[2016-06-16 05:00] LABS: WBC 0.2 thou/uL (4.0-11.0)
[2016-06-16 05:01] LABS: MANUAL DIFF YES
[2016-06-16 06:04] LABS: TOTAL CELL COUNT 50
[2016-06-16 06:05] LABS: LARGE PLATELETS OCCASIONAL; PLATELET ESTIMATE DECREASED
[2016-06-16 06:08] LABS: ANISOCYTOSIS 3+
[2016-06-16 10:10] LABS: BODY FLUID ALBUMIN 1.7 g/dL (()); BODY FLUID AMYLASE 33 U/L (()); BODY FLUID GLUCOSE 93 mg/dL (()); BODY FLUID LDH 2125 IU/L (()); BODY FLUID PROTEIN 3.2 g/dL (())
[2016-06-16 11:12] LABS: BF LINING CELLS 29 % (Not Estab.); BF MACROPHAGE 1 % (Not Estab.); BF NEUTROPHILS 15 % (0-24); BF NUCLEATED CELLS 159 /mm3 (0-499); BF RBC 3000 /uL (Not Estab.); CLARITY CLOUDY (Clear); COLOR YL (())
[2016-06-16 22:09] LABS: INFLUENZA B Negative (Negative); METAPNEUMOVIRUS Negative (Negative)
[2016-06-17] VITALS (23 sets, daily range): BP systolic 88–118; BP diastolic 55–87
[2016-06-17 04:19] LABS: HEMATOCRIT 28.2 % (37.0-47.0); HEMOGLOBIN 9.1 gm/dL (12.0-15.0); MCH 26.2 pg (26.0-34.0); MCHC 32.4 % (28.0-37.0); RBC 3.49 mil/uL (4.20-5.00); RDW 30.2 % (10.5-14.5)
[2016-06-17 04:24] LABS: MANUAL DIFF YES; WBC 0.2 thou/uL (4.0-11.0)
[2016-06-17 04:39] LABS: CALCIUM 7.5 mg/dL (8.5-10.1); CREATININE 0.5 mg/dL (0.6-1.3)
[2016-06-17 04:43] LABS: POTASSIUM 2.7 mmol/L (3.5-5.1)
[2016-06-17 05:05] LABS: TOTAL CELL COUNT 50
[2016-06-17 05:06] LABS: ANISOCYTOSIS 3+; LARGE PLATELETS OCCASIONAL; PLATELET COUNT 33 thou/uL (150-400); PLATELET ESTIMATE DECREASED
[2016-06-17 05:07] LABS: MACROCYTES 1+
[2016-06-17 05:08] LABS: MICROCYTES 2+
[2016-06-17 05:09] LABS: HYPOCHROMASIA SLIGHT; OVALOCYTES 1+; POIKILOCYTOSIS 1+; TARGET CELLS 1+
[2016-06-17 05:10] LABS: SCHISTOCYTES RARE
[2016-06-18] VITALS (16 sets, daily range): BP systolic 100–124; BP diastolic 73–99
[2016-06-18 00:13] LABS: MAGNESIUM 2.3 mg/dL (1.8-2.4); POTASSIUM 3.3 mmol/L (3.5-5.1)
[2016-06-18] MEDS ORDERED: KEFLEX500 MG PO (11:42)
[2016-06-18] MEDS ORDERED: LORAZEPAM 0.50.5 M1 PO (11:45)
[2016-06-18] MEDS ORDERED: PERCOCET 7.5-31 EACH PO (11:46)
[2016-06-18] MEDS ORDERED: FENTANYL PA25 MCG/HR TRANSDERM (11:47)
== END 2016-06-18 16:00 | disposition hospice, inpatient (51) | DRG 871 ==
LOC: ER 12:14 → ICU 14:20 → EROBS 14:20 → ICU 16:21
PROVIDERS: Emergency Medicine; Family Medicine; Hospitalist; Internal Medicine Gastroenterology; Specialist
PROC: 30233N1 Transfusion of Nonautologous Red Blood Cells into Peripheral Vein, Percutaneous Approach (ICD-10-PCS; principal; 2016-06-12)
PROC: 02H633Z Insertion of Infusion Device into Right Atrium, Percutaneous Approach (ICD-10-PCS; principal; 2016-06-12)
PROC: B244YZZ Ultrasonography of Right Heart using Other Contrast (ICD-10-PCS; principal; 2016-06-12)
PROC: 0W9G30Z Drainage of Peritoneal Cavity with Drainage Device, Percutaneous Approach (ICD-10-PCS; 2016-06-15)
DX: A41.01 Sepsis due to Methicillin susceptible Staphylococcus aureus (principal); R65.21 Severe sepsis with septic shock; I26.99 Other pulmonary embolism without acute cor pulmonale; D61.810 Antineoplastic chemotherapy induced pancytopenia; C78.6 Secondary malignant neoplasm of retroperitoneum and peritoneum; C78.00 Secondary malignant neoplasm of unspecified lung; C78.7 Secondary malignant neoplasm of liver and intrahepatic bile duct; C79.31 Secondary malignant neoplasm of brain; R18.0 Malignant ascites; E46 Unspecified protein-calorie malnutrition; C57.00 Malignant neoplasm of unspecified fallopian tube; E87.6 Hypokalemia; R13.10 Dysphagia, unspecified; D69.6 Thrombocytopenia, unspecified; C57.7 Malignant neoplasm of other specified female genital organs; D50.9 Iron deficiency anemia, unspecified; D70.1 Agranulocytosis secondary to cancer chemotherapy; Z79.899 Other long term (current) drug therapy; Z68.22 Body mass index [BMI] 22.0-22.9, adult; Z86.711 Personal history of pulmonary embolism; Z79.01 Long term (current) use of anticoagulants; Z28.21 Immunization not carried out because of patient refusal
CPT/HCPCS: 10078; 27000; 85076